=== PATIENT | male | born 1975 | race African-American/Black ===

== ENCOUNTER 2017-09-14 00:05 | Emergency (ER) | payer BC ==
[2017-09-14 00:09] VITALS: RESP 18; TEMP 97.5
--- NOTE | 2017-09-14 01:07 | ED ---
Alcohol HPI - General Chief Complaint: Alcohol Stated Complaint: ETOH Time Seen by Provider: 09/14/17 00:11 Source: patient Mode of arrival: EMS Limitations: no limitations - History of Present Illness Initial Comments: 42-year-old male patient presents to the emergency department today for alcohol intoxication. Patient was found lying at a bus stop and police were called. Patient denies any injuries. He is unsure how he got to the bus stop. Does admit to drinking several shots and 2-24 ounce beers. Denies any current physical symptoms, states that he feels well. Patient denies any recent rash, fever, chills, shortness breath, chest pain, abdominal pain, nausea, vomiting, diarrhea, constipation, back pain, numbness, tingling, dizziness, weakness, hematuria, dysuria, urinary urgency, urinary frequency, headache, visual changes , or any other complaints. - Related Data Allergies Allergy/AdvReac Type Severity Reaction Status Date / Time No Known Allergies Allergy Verified 09/14/17 00:06 Review of Systems ROS Statement: Those systems with pertinent positive or pertinent negative responses have been documented in the HPI. ROS Other: All systems not noted in ROS Statement are negative. Past Medical History Past Medical History: No Reported History History of Any Multi-Drug Resistant Organisms: None Reported Past Surgical History: No Surgical Hx Reported Past Psychological History: No Psychological Hx Reported Smoking Status: Current every day smoker Past Alcohol Use History: Occasional Past Drug Use History: None Reported General Exam Limitations: no limitations General appearance: alert, in no apparent distress, appears intoxicated, other ( Physical well-developed, well-nourished adult male patient in no acute distress. Vital signs upon presentation are temperature 97.5F, pulse 117, respirations 18, blood pressure 136/76, pulse ox 100% on room air.) Eye exam: Present: normal appearance, PERRL, EOMI. Absent: scleral icterus, conjunctival injection, periorbital swelling ENT exam: Present: normal exam, normal oropharynx, mucous membranes moist Neck exam: Present: normal inspection, full ROM. Absent: tenderness, meningismus, lymphadenopathy Respiratory exam: Present: normal lung sounds bilaterally. Absent: respiratory distress, wheezes, rales, rhonchi, stridor Cardiovascular Exam: Present: regular rate, normal rhythm, normal heart sounds. Absent: systolic murmur, diastolic murmur, rubs, gallop, clicks GI/Abdominal exam: Present: soft, normal bowel sounds. Absent: distended, tenderness, guarding, rebound, rigid Extremities exam: Present: normal inspection, full ROM, normal capillary refill. Absent: tenderness, pedal edema, joint swelling, calf tenderness Back exam: Present: normal inspection Neurological exam: Present: alert, oriented X3, CN II-XII intact Psychiatric exam: Present: normal affect, normal mood Skin exam: Present: warm, dry, intact, normal color. Absent: rash Course Vital Signs 09/14/17 09/14/17 00:06 01:07 Temperature 97.5 F L Pulse Rate 117 H 100 Respiratory 18 18 Rate Blood Pressure 136/76 124/80 O2 Sat by Pulse 100 98 Oximetry Medical Decision Making - Medical Decision Making 42-year-old male patient presented to the emergency department today for evaluation of alcohol intoxication. Patient was found lying at a bus stop sleeping. Patient denies any injuries. Physical examination is unremarkable, no signs of trauma. Patient does appear intoxicated. was called, she did come to pick the patient up. States that he has had increased drinking over the last couple weeks after the of his mother. I did instruct him to follow-up with the primary care physician for further evaluation necessary. Return parameters discussed in detail. They verbalize understanding and agree with this plan. Disposition Clinical Impression: Alcohol intoxication Disposition: HOME SELF-CARE Condition: Good Instructions: Alcohol Intoxication (ED) Additional Instructions: Increase fluids. Follow-up with her primary care physician for recheck in 1-2 days. Return here immediately for any new, worsening, or concerning symptoms. Is patient prescribed a controlled substance at d/c from ED?: No Referrals: None,Stated [REFERRING] - 1-2 days Time of Disposition: :07
[2017-09-14 01:12] VITALS: BP 124/80; PULSE 100
== END 2017-09-14 01:19 | disposition home or self-care (01) ==
LOC: EC 00:05
DX: F10.129 Alcohol abuse with intoxication, unspecified (principal); F17.200 Nicotine dependence, unspecified, uncomplicated
CPT/HCPCS: 82075; 99284

== ENCOUNTER → 2019-10-29 | Outpatient (CLI) | payer BC, OTHER ==
[2019-10-29 11:35] LABS: Basophils # (A) 0.1 k/uL (0-0.2); Basophils % (A) 2 %; Eosinophils # (A) 0.4 k/uL (0-0.7); Eosinophils % (A) 6 %; HCT 42.7 % (39.0-53.0); HGB 13.8 gm/dL (13.0-17.5); Lymphocytes # (A) 1.7 k/uL (1.0-4.8); Lymphocytes % (A) 24 %; MCH 28.1 pg (25.0-35.0); MCHC 32.2 g/dL (31.0-37.0); MCV 87.2 fL (80.0-100.0); Mean Platelet Volume 7.8; Monocytes # (A) 0.4 k/uL (0-1.0); Monocytes % (A) 6 %; Neutrophils # (A) 4.2 k/uL (1.3-7.7); Neutrophils % (A) 60 %; Platelet Count 382 k/uL (150-450)
[2019-10-29 18:05] LABS: ALT 25 U/L (10-49); AST 30 U/L (14-35); Alkaline Phosphatase 100 U/L (41-126); Bilirubin, Conjugated <0.20 mg/dL (0.20-0.40); Chol/HDL Ratio 3.27; Cholesterol 203 mg/dL (0-200); Globulin 2.3 g/dL (1.6-3.3); Glucose 77 mg/dL (70-110); Total Bilirubin 0.4 mg/dL (0.2-1.2); Total Protein 6.9 g/dL (6.2-8.2); Triglycerides <50.0 mg/dL (0.0-149.0)
== END | disposition home or self-care (01) ==
LOC: LABWHC1 10:06
PROVIDERS: ATTEND Internal Medicine
DX: Z00.00 Encounter for general adult medical examination without abnormal findings (principal)
CPT/HCPCS: 36415; 80061; 80076; 82947; 84439; 84443; 85025

== ENCOUNTER → 2024-05-22 | Outpatient (CLI) | payer BC ==
--- NOTE | 2024-05-22 18:59 | CT ---
EXAMINATION TYPE: CT sinus wo con CT DLP: 581.4 mGycm, Automated exposure control for dose reduction was used. DATE OF EXAM: 05/22/2024 5:54 PM COMPARISON: None. CLINICAL INDICATION:Male, 48 years old with history of J32.9 CHRONIC SINUSITIS, UNSPECIFIED; PHH, Chr onic sinusitis. CONTRAST: None. TECHNIQUE: Multiple thin axial images were obtained through the paranasal sinuses without the use of IV contrast. Additional coronal and sagittal reformatted images were submitted for evaluation. FINDINGS: Frontal sinuses: Normally developed. Minimal mucosal thickening in the inferior bilateral frontal sin uses. Frontal Recess: Opacified bilaterally. Maxillary Sinuses: Normally developed. Minimal mucosal thickening bilaterally. Maxillary Infundibula([facility]): Partially opacified on the left and nearly completely opacified on the ri ght, no David cells. Ethmoid sinuses: Normally developed. Mild mucosal thickening of the bilateral ethmoid sinuses. Ethmoi olinda notch: Supraorbital pneumatization is identified. Sphenoid sinuses: Normally developed and aerated. There is presellar sphenoid sinus pneumatization wi thout evidence of dehiscence. No dehiscence of carotid canal. No evidence of optic nerve dehiscence within the sphenoid sinus. No evidence of Onodi cells. Sphenoethmoidal recesses: Clear. Nasal septum: Within normal limits.. Nasal Turbinates: Within normal limits. Mastoid air cells & middle ears: The air cells are clear. The middle ears are grossly unremarkable. Modified Soft tissues & Brain: Mild atrophy of the bilateral visualized frontal lobes. Globes are int act. Other: Cribriform plate demonstrates symmetric Keros classification type 2 cribriform plate. No evidence of bony dehiscence of skull base. Lamina papyracea is intact without evidence of remote orbital fracture or orbital prolapse into the e thmoid sinus. IMPRESSION: Minimal paranasal sinus disease with opacification of the bilateral frontonasal recesses and ostiomea sugar units. [facility], , 05/22/2024 6:57 PM
== END | disposition home or self-care (01) ==
LOC: RADCTMAIN 17:27
PROVIDERS: ATTEND Family Medicine
DX: J34.89 Other specified disorders of nose and nasal sinuses (principal); J32.9 Chronic sinusitis, unspecified
CPT/HCPCS: 70486